=== PATIENT | male | born 1975 | race Caucasian/White ===

== ENCOUNTER 2023-03-15 09:18 | Day surgery (SDC) | payer OTHER ==
[2023-03-13 14:16] VITALS: BMI 24.4
[2023-03-15] MEDS ORDERED: PROPOFOL 40 ML ONE (11:55)
[2023-03-15] MEDS ORDERED: Lidocaine 2% MPF 10 ML AMP (For Epidural Use) ONE (11:57)
[2023-03-15] MEDS ORDERED: PROPOFOL 20 ML ONE ×2 (12:04→12:05)
== END 2023-03-15 12:57 | disposition home or self-care (01) ==
LOC: CSHSDC 09:18
PROVIDERS: ATTEND Internal Medicine Gastroenterology
PROC: 0DB98ZX Excision of Duodenum, Via Natural or Artificial Opening Endoscopic, Diagnostic (ICD-10-PCS; principal; 2023-03-15)
PROC: 0DJD8ZZ Inspection of Lower Intestinal Tract, Via Natural or Artificial Opening Endoscopic (ICD-10-PCS; principal; 2023-03-15)
DX: D50.9 Iron deficiency anemia, unspecified (principal); Z12.11 Encounter for screening for malignant neoplasm of colon; E78.5 Hyperlipidemia, unspecified; Z87.891 Personal history of nicotine dependence
CPT/HCPCS: 88305; J2704

== ENCOUNTER 2025-01-21 19:47 | Emergency (ER) | payer OTHER, SELFPAY ==
[2025-01-21] MEDS ORDERED: diphenhydrAMINE 50 MG/ML VIAL ONE (19:56)
[2025-01-21] MEDS ORDERED: Dexamethasone 10 MG/ML VIAL ONE (19:56)
[2025-01-21] MEDS ORDERED: Famotidine/PF 20 mg/2ml Vial ONE (22:24)
== END 2025-01-21 23:22 | disposition home or self-care (01) ==
LOC: CSHERS 19:47
DX: T63.441A Toxic effect of venom of bees, accidental (unintentional), initial encounter (principal); T78.2XXA Anaphylactic shock, unspecified, initial encounter
CPT/HCPCS: 93005; 96372; 96374; 96375; J0169; J1100; J1200